=== PATIENT | female | born 1950 | race Caucasian/White ===

== ENCOUNTER 2020-01-04 14:09 | Outpatient (CLI) | payer MEDICARE, SELFPAY ==
--- NOTE | 2020-01-04 14:19 | XR_ITS ---
WS: [id number] XR knee RT 3V* [id number] REASON FOR EXAM: knee pain FINDINGS: The meniscal spaces are normal. No fractures or dyscrasias of the femur, tibia, fibula, R patella. The patella tibial space is normal. Patellofemoral articulations normal. XR/XR knee RT 3V* [id number] IMPRESSION: Negative right knee.
== END 2020-01-04 14:10 | disposition home or self-care (01) ==
LOC: RAD 14:15
PROVIDERS: Family Provider Registered Nurse; PCP Registered Nurse; Visit Provider Registered Nurse
DX: M25.561 Pain in right knee (principal)
CPT/HCPCS: 73562

== ENCOUNTER 2020-02-06 12:22 | Outpatient (CLI) | payer MEDICARE, SELFPAY ==
--- NOTE | 2020-02-06 12:52 | MR_ITS ---
WS: [id number] MRI RIGHT KNEE HISTORY: Chronic knee pain. No injury. COMPARISON: Knee radiograph 01/04/2020 Anterior cruciate ligament: Small amount of edema surrounding the ACL but no tear. Posterior cruciate ligament: Intact. Medial collateral ligament: Intact. Posterior lateral corner structures: Intact. Medial menisci: Intact. Normal signal, size and shape. Lateral meniscus: Intact. Normal signal, size and shape. Extensor mechanism: Distal quadriceps tendon is normal. Mild increased signal in the proximal patella r tendon. Fluid and soft tissue: Small Rankin's cyst. There is edema surrounding the knee. Greatest anteriorly a nd laterally. Small suprapatellar effusion. Osseous and articular structures: Patellofemoral compartment: Normal. Medial compartment: Mild narrowing medial compartment. Subchondral cystic lesion measuring 6 mm trans versely in the femoral condyle along the weightbearing surface. No fracture. Cartilage is intact. Lateral compartment: Mild narrowing of the lateral compartment. There is very slight thinning of the cartilage along the weightbearing surface. There is an additional 3.3 mm low signal nodule towards th e intercondylar notch. This could be a loose body. MR/MR knee RT wo con* [id number] IMPRESSION: 1. No meniscal tear. 2. Small suprapatellar joint effusion, soft tissue edema and small Rankin's cys t. 3. Possible 3.3 mm loose body seen only on one image just lateral to the inter condylar notch. 4. Subchondral cystic lesion measures 6 mm medial femoral condyle. 5. Increased signal in ACL but no tear.
== END 2020-02-06 12:23 | disposition home or self-care (01) ==
LOC: RADWPI 12:25
PROVIDERS: Family Provider Registered Nurse; PCP Registered Nurse; Visit Provider Orthopaedic Surgery
DX: M25.561 Pain in right knee (principal); G89.29 Other chronic pain; M25.461 Effusion, right knee; R60.9 Edema, unspecified; M71.21 Synovial cyst of popliteal space [Baker], right knee; M25.861 Other specified joint disorders, right knee
CPT/HCPCS: 73721

== ENCOUNTER → 2020-03-06 10:22 | Outpatient (BNVA) | payer MEDICARE, SELFPAY | PROVIDERS: Family Provider Registered Nurse; PCP Registered Nurse; Visit Provider Internal Medicine Cardiovascular Disease | DX: G45.8 Other transient cerebral ischemic attacks and related syndromes (principal) | CPT/HCPCS: 80048; 85025; 87635 ==

== ENCOUNTER 2020-03-12 07:41 | Day surgery (SDC) | payer MEDICARE, SELFPAY ==
--- NOTE | 2020-03-12 09:27 | P.HP_ITS ---
Providers/Chief Complaint Primary Care Provider: MILTON Camacho Chief Complaint: PVD History of Present Illness Gabriella Duarte is a 69 year old female who has been struggling with left side arm weakness and cramps with claudication during her daily chores especially washing dishes. Few months ago patient underwent ultrasound of the subclavian artery which was concerning for high-grade stenosis. CTA was repeated which showed only mild disease at that time patient was reassured but she continues to report symptoms repeatedly. I started her on cilostazol to see whether her symptoms improve. According to her it has improved somewhat but still it hinders her lifestyle and she continues to have weakness and cramps in the left arm and forearm upon washing dishes and cannot wash them anymore. She has a good pulse in the radial artery. There is a discrepancy between CTA and ultrasound report. Since patient remains symptomatic therefore we decided to bring her for peripheral angiogram of the left subclavian artery. It is the reason she is here. I have again given the patient tries that we can continue to manage her medically with cilostazol but she declined and says that she is not able to do her chores and would like to treat for it. She denies any tender points at this point she denies pain of the left arm at rest. There is no evident wasting of the muscles. She can lift her arm and has 5 x 5 motor. She has good sensory. Medications/Allergies Home Medications Medication Instructions Recorded Confirmed Last Taken Type amlodipine 2.5 mg tablet 2.5 mg PO DAILY 01/04/20 03/12/20 03/12/20 06:30 History cyclobenzaprine 10 mg tablet 10 mg PO TID 01/04/20 03/12/20 03/12/20 06:30 History hydrochlorothiazide 25 mg tablet 25 mg PO DAILY 01/04/20 03/12/20 03/12/20 06:30 History hydrocodone 7.5 mg-acetaminophen 1 tab PO Q6H PRN 01/04/20 03/12/20 03/09/20 12:00 History 325 mg tablet levothyroxine 25 mcg capsule 25 mcg PO DAILY 01/04/20 03/12/20 03/12/20 06:30 History venlafaxine 150 mg 150 mg PO DAILY 01/04/20 03/12/20 03/12/20 06:30 History capsule,extended release 24 hr albuterol sulfate 90 mcg/actuation 2 puff INHALATION Q6H PRN 01/17/20 03/12/20 Unknown History aerosol inhaler alprazolam 0.25 mg tablet 0.25 mg PO DAILY PRN 01/17/20 03/12/20 Unknown History atorvastatin 10 mg tablet 10 mg PO DAILY tab 01/17/20 03/12/20 03/11/20 18:00 History gabapentin 400 mg capsule 1,200 mg PO TID cap 01/17/20 03/12/20 03/12/20 06:30 History metoprolol succinate 50 mg 50 mg PO DAILY 01/17/20 03/12/20 03/12/20 06:30 History tablet,extended release 24 hr cilostazol 50 mg tablet 50 mg PO BID #60 tab 01/18/20 03/12/20 03/12/20 06:30 Rx alprazolam 0.25 mg PO TID PRN 03/12/20 03/12/20 03/11/20 18:00 History cabzgvuulu-bincxxriifqpi-mjbp 1 cap PO Q4H PRN 03/12/20 03/12/20 Unknown History naproxen sodium [Aleve] 220 mg PO BID PRN 03/12/20 03/12/20 Unknown History potassium chloride 10 meq PO DAILY 03/12/20 03/12/20 03/12/20 06:30 History timolol maleate 1 drp OPHTHALMIC (EYE) BID 03/12/20 03/12/20 03/12/20 06:30 History vit C,A-Lu-eihfv-lutein-zeaxan 1 tab PO BID 03/12/20 03/12/20 03/11/20 06:30 History [PreserVision AREDS-2] Allergies Allergy/AdvReac Type Severity Reaction Status Date / Time naproxen Allergy Unknown Verified 03/12/20 09:24 Sulfa (Sulfonamide Allergy Unknown Verified 03/12/20 09:24 Antibiotics) clopidogrel AdvReac Mild Bruising Verified 03/12/20 09:24 badly PFSH Acute PFSH: Medical History (Updated 03/12/20 @ 09:39 by Lyndsay Parham MD) Claudication in peripheral vascular disease Fibromyalgia Subclavian steal syndrome Social History Smoking and tobacco status: never smoked Alcohol intake: never Physical Exam Narrative: EXAM NARRATIVE: GENERAL: Patient is alert, awake and oriented x3. NECK: No jugular vein distension. HEENT: No cyanosis. No icterus. No pallor. HEART: Regular S1 and S2. No murmur, rub or gallop. LUNGS: Clear to auscultate bilaterally. ABDOMEN: Soft, nontender and nondistended. Positive bowel sounds. No guarding, rebound or tenderness. CENTRAL NERVOUS SYSTEM: Grossly nonfocal. EXTREMITIES: Lower extremities without edema bilaterally A&P Assessment and plan (1) Claudication in peripheral vascular disease: Patient has been struggling with cramps pain and claudication of left arm upon repeated movement and doing chores such as washing dishes and household work. She has been managed conservatively for the past 8 or 10 months. She has failed medical management. She has been taking cilostazol which has made mild difference but she thinks that it is getting worse again. Patient has been given the choice to continue with cilostazol continue exercise exercise but she declined and would like to proceed with angiogram since there is a discrepancy between results of ultrasound and CTA. We will proceed with peripheral angiogram with aortogram of the arch and selective subclavian angiogram of the left arm. Further plan will be advised as per progress of the patient. Patient has been explained all risk benefit and alternative for the procedure. Patient has been explained FDA warning regarding drug-coated balloon with increased mortality among the group minute was used. She understand the risk fully. She would like to proceed with it. Status: Acute Attestations Medical Necessity Statement*: I am not expecting her stay to cross more than 2 midnights Coding Level of Care Code Established Pt Acute Collection Teller for g Fwd Patient Type Established History Expanded Problem Focused Exam Expanded Problem Focused Medical Decision Making Moderate Complexity Diagnoses Claudication in peripheral vascular disease I73.9
--- NOTE | 2020-03-12 09:34 | PC.NURSE ---
Patient transported to cytology laboratory manager on bed.
--- NOTE | 2020-03-12 09:35 | XACV_ITS ---
Ht: 157 cm Wt: 105 kg BSA: 2.20 m2 Gender: Female : 1950 Exam Type: Invasive Peripheral Vascular Procedure(s): Procedure Description: Peripheral Cath Diagnostic Procedure Procedure Description: Upper Extremity Arteriography Procedure Description: Aortic Arch Angiography Exam Priority: Routine Conclusions Indication for peripheral angiogram: Discrepancy between ultrasound and CTA result, lifestyle limiting claudication of left arm despite of optimal medical management and exercises.Aortogram was obtained in ESTONIAN position. 1-Normal ascending aorta2-Normal arch of aorta3-Normal innominate artery with right common carotid and subclavian artery without any significant stenosis.4-Normal left common carotid artery5-Normal left subclavian artery6-Normal left axillary and brachial artery7-Normal left radial and ulnar artery . Recommendations 1-Return to inpatient for close monitoring and routine cath care 2-Risk factor modification for secondary prevention 3-Statin and aspirin 81 mg life--long, if tolerated 4-External vascular causes for left arm pain and weakness should be considered 6-Follow up with Dr. Parham . Access Site Site: Right Femoral artery Sheath Size: 6 Fr Hemost... Success: Unsuccessful Procedure Details Findings Procedure Consent Obtained. Pre-Procedure Time Out. Identified patient by full name and date of as verbalized by the patient/guarantor. Does the consent match the physician's order: Yes. Accurate & Complete Informed Consent: Yes. Inpatient/Outpatient History & Physical on Chart: Yes. If H&P is completed, is and addenduem needed: Yes; If yes, is the addendum complete: N/A. Visualize and Verify Site with Patient/Guarantor: N/A. Relevant Radiology Images available: N/A. The risks, benefits, and alternatives of sedation and/or procedure were discussed by physician. The patient agrees to continue. Procedure started. Current diagnosis: PVD. PERRLA. Strong, equal hand blending tank tender bilaterally. Lungs clear x 5 lobes. IV Site on Arrival: 20 gauge in the right anticubital. IV Fluids: 0.9% NaCl at KVO. 0 mL infused prior to brine room laborer. Pre Procedural Pulses: bilateral dorsalis pedis was 1+. Pre Procedural Pulses: bilateral posterior tibial was 1+. Oxygen started at 2liters/min via nasal canula. bilateral groins was prepped with chloroprep then draped in the usual sterile fashion. Physician notified. Baseline sample Acquired. HR: 83 BPM. Patient's family unavailable. Equipment: 6F - Femoral. Physician arrived. Physician scrubbed in. Immediate Pre-Procedure Time Out. Correct Patient: Yes; Correct Procedure: Yes; Correct Site: Yes; Correct Patient Position: Yes; Correct Supplies: Yes; Dried Flammable Prep: Yes; Blood Products Available: No;. Lidocaine 1% infiltrated to the right groin. Physician scrubbed in. Time out performed with cath team. patients mediction list in system. patient allergies: ProAir HFA, Xanax, Norvasc, Aggrenox, Lipitor, cyclobenzaprine, gabapentin,hydrochlorothiazide,Jewett, levothyroxine, metoprolol, effexor, vitamin C & E. Arterial access obtained with micropuncture set. A 5FrFr pigtail catheter in over wire. aortic arch 20ml for a total of 40ml performed. arch performed 15ml for a total of 40ml. arch performed 14ml for a total of 30ml. pigtail removed and a MPA 1 inserted. left arm runoff performed 13ml for a total of 30ml. left arm runoff performed 14ml for a total of 40ml. catheter out. A Right femoral angiogram was performed to determine safe placement of closure device. Contrast type used: Visipaque 320 mgI/mL, 500 mL bottle. [id number]. Post-op diagnosis: PVD. Complications: none. Estimated blood loss: 5mL-10mL. Procedure completed. Medication's Wasted: Heparin = 1000 mL. Total IV fluids: 50 mL. Fluoro: 4:09. No VTE prophylaxis required. PERRLA. Strong, equal hand blending tank tender bilaterally. Perclose placed without complications. No signs or symptoms of hematoma noted. Sterile dressing applied per usual sterile fashion. Post Procedure: Pulses reassessed and unchanged. Patient transferred by bed to 1st floor. Procedure Medications Start: 9:57 AM Stop: 9:57 AM Medication: Versed Amount: 1 mg Route: I.V. Start: 9:58 AM Stop: 9:58 AM Medication: Fentanyl Amount: 50 mcg Route: I.V. Start: 9:59 AM Stop: 9:59 AM Medication: Versed Amount: 1 mg Route: I.V. Start: 10:12 AM Stop: 10:12 AM Medication: Fentanyl Amount: 50 mcg Route: I.V. I, the attending physician, have reviewed and verified all procedure medications. Yes, all medications given per verbal order History/Risk Factors Hypertension: No Dyslipidemia: No Peripheral Arterial Disease (PAD): Yes Myocardial Infarction ([place]): No Obesity: Yes Tobacco Use: Never Prior Interventions PCI: No CABG: No Valve Surgery: No Report Signatures Finalized by:Lyndsay Parham MD on 03/20/2020 5:41:41 PM
--- NOTE | 2020-03-12 10:40 | W.PM.OPSUD ---
Surgery/Procedure H&P Update DATE OF PROCEDURE: March 12, 2020 DATE H&P PERFORMED: 03/12/20 H&P UPDATE INFORMATION: I have examined patient prior to procedure, No changes to prior documentation and H&P to be scanned into chart PREOP DIAGNOSIS: Left arm claudication despite of optimal medical management and exercise PLANNED PROCEDURE: Operation Date: 03/12/20 08:30 Proposed Procedures p Peripheral Diagnostic(Not Applicable) - Lyndsay Parham MD PATIENT REASSESSED PRIOR TO SEDATION, WITH NO CHANGE NOTED: Yes PHYSICAL EXAM: alert, oriented x 3, clear to auscultation bilaterally and regular rate & rhythm AIRWAY EVAL/ANESTHESIA PLAN: normal airway, ASA II, Risks, benefits & alternatives of sedation and/or procedure discussed and Patient agrees to continue as planned
[2020-03-12 10:45] VITALS: BP 114/74; PULSE 72; RESP 20; O2SAT 94
[2020-03-12 10:46] VITALS: PULSE 68; RESP 18; O2SAT 91
--- NOTE | 2020-03-12 10:48 | PC.NURSE ---
Patient returned from photo lab technician.
--- NOTE | 2020-03-12 11:20 | PC.CHAP ---
Pastoral Care Encounter/Spiritual Assessment Type of Contact [] Declined vibrator equipment tester visit [] Patient/Family/Request visit [] Outpatient visit [] Follow-up visit [] Physician referral [] Code/Alert [x] Routine visit [] Staff referral [] Actively dying [] Patient sleeping [] Family support [] [] Out of room [] Palliative care [] [x] Receiving care in room [] Pre-surgical visit [] Trauma [] Long length of stay [] ICU visit [] Other: Relational/Emotional Strength [x] Patient feels connected with others/family/visitors/staff [] Distress [] Loneliness/isolation [] Abandonment Spirituality of Patient [x] Person of Miryam [] Attends Scientologist of their Miryam [x] Believes in Prayer [] Reads Bible or Latter-Day materials [] There are Spiritual issues to be addressed Research Computing Specialist Interventions [x] Prayer [x] Active listening [x] Non-anxious presence [x] Spiritual/emotional support [] Crisis/trauma care [x] Spiritual counseling [] Bereavement support [] Provided bereavement packet [] Provided Bible/devotional materials [] Provided toy/stuffed animal, coloring book to patient or family member [] Provided Communion [] Anointing/[place] [] Salvation [x] Completed spiritual assessment [] Other: Impact on Illness or Injury [] Angry [x] Fearful [] Anxious [] Often cries [] Exhaustion [] Unable to work [] Unable to attend hinduism [] Unable to walk/stand [] Unable to read [] Unable to drive [] Unable to eat/drink [] Unable to sleep [] Unable to be with family [] Patient intubated [] Other: Summary PVD Tests came possitive good, She was drosy, feels good, has a postive attitude, going with family Time spent with patient 10 mins
[2020-03-12] MEDS: HYDROcodone-acetaminophen 7.5-325 mg Tablet 1 TAB PO (12:25)
[2020-03-12 14:53] VITALS: RESP 18; O2SAT 94
== END 2020-03-12 16:20 | disposition home or self-care (01) ==
LOC: CCL 07:49 → CSU 07:53
PROVIDERS: PCP Registered Nurse; Visit Provider Internal Medicine Cardiovascular Disease
DX: I73.9 Peripheral vascular disease, unspecified (principal); M79.7 Fibromyalgia
CPT/HCPCS: 12345; 36225; 75605; C1760; C1769; C1887; C1894; J1644; J2001; J2250; J3010; J7030; Q9967

== ENCOUNTER → 2022-08-21 11:29 | Outpatient (BNVA) | payer MEDICARE, SELFPAY | PROVIDERS: Family Provider Registered Nurse; PCP Registered Nurse; Visit Provider Internal Medicine Cardiovascular Disease | DX: M79.89 Other specified soft tissue disorders (principal); I10 Essential (primary) hypertension | CPT/HCPCS: 99213; 99214 ==

== ENCOUNTER → 2023-05-21 11:06 | Outpatient (BNVA) | payer MEDICARE, SELFPAY | PROVIDERS: Family Provider Registered Nurse; PCP Family Medicine; Visit Provider Internal Medicine Cardiovascular Disease | DX: M79.89 Other specified soft tissue disorders (principal); I10 Essential (primary) hypertension; E78.5 Hyperlipidemia, unspecified; M79.7 Fibromyalgia; E03.9 Hypothyroidism, unspecified | CPT/HCPCS: 99214 ==